=== PATIENT | male | born 1985 | race Two or more races ===

== ENCOUNTER 2024-06-08 23:22 | Emergency (ER) | payer OTHER ==
[~2024-06-08] VITALS: Ht 170.2 cm; Wt 81.8 kg
[2024-06-08 23:32] VITALS: BP 127/91; PULSE 64; RESP 18; TEMP 98.2
[2024-06-09 00:10] LABS: BASOPHILS % (AUTO) 0.8 % (0.0-2.0); EOSINOPHILS % (AUTO) 1.5 % (1.0-6.0); HEMOGLOBIN 15.8 g/dL (13.5-17.5); LYMPHOCYTES # (AUTO) 3.8 K/uL (1.0-4.8); MEAN CORPUSCULAR HEMOGLOBIN 30.1 pg (26.0-34.0); MEAN CORPUSCULAR HGB CONC 33.6 G/dL (31.0-37.0); MEAN CORPUSCULAR VOLUME 89 fL (80-100); MONOCYTES # (AUTO) 0.6 K/uL (0.1-1.0); MONOCYTES % (AUTO) 7.7 % (2.0-9.0); NEUTROPHILS # (AUTO) 3.7 K/uL (1.8-7.7); PLATELET COUNT (AUTO) 254 K/uL (150-450); RED BLOOD CELL COUNT(AUTO) 5.26 MIL/uL (4.50-5.90); RED CELL DISTRIBUTION WIDTH 12.7 % (11.5-14.5); WHITE BLOOD COUNT (AUTO) 8.3 K/uL (4.5-11.0)
[2024-06-09 00:21] LABS: ANION GAP 5 mmol/L (8-16); CARBON DIOXIDE 30 mmol/L (22-29); CHLORIDE 100 mmol/L (98-107); CREATININE 1.08 mg/dL (0.60-1.30); GLOMERULAR FILTR. RATE CALC > 60 mL/min (>60); GLUCOSE,RANDOM 104 mg/dL (70-110); SODIUM SERUM 135 mmol/L (136-145); UREA NITROGEN, BLOOD 16 mg/dL (7-18)
[2024-06-09] MEDS: FAMOTIDINE 20 MG/2 ML VIAL IVP ONE (00:30)
[2024-06-09] MEDS: MAG HYDROX/ALUMINUM HYD/SIMETH 30 ML SUSPENSION UDCUP PO ONE (00:30)
[2024-06-09] MEDS ORDERED: SODIUM CHLORIDE 0.9% 100 ML ONE (00:33)
[2024-06-09] MEDS ORDERED: IOHEXOL 350 MG/ML 100 ML VIAL ONE (00:34)
[2024-06-09 00:39] LABS: ALANINE AMINOTRANSFERASE 36 U/L (12-78); ALKALINE PHOSPHATASE 59 U/L (46-116); ASPARTATE AMINOTRANSFERASE 17 U/L (15-37); BILIRUBIN,TOTAL 0.5 mg/dL (0.1-1.0); LIPASE 60 U/L (16-77); TOTAL PROTEIN, SERUM 7.9 g/dL (6.4-8.2)
[2024-06-09 00:41] LABS: TROPONIN I-HIGH SENSITIVITY 4 ng/L (<76)
[2024-06-09 03:22] LABS: APPEARANCE,URINE CLEAR (CLEAR); BILIRUBIN,URINE NEGATIVE (NEGATIVE); COLOR,URINE LIGHT YELLOW (YELLOW); GLUCOSE, URINE (UA) NEGATIVE (NEGATIVE); KETONES,URINE NEGATIVE (NEGATIVE); LEUKOCYTE ESTERASE ,URINE NEGATIVE (NEGATIVE); NITRATE,URINE NEGATIVE (NEGATIVE); OCCULT BLOOD,URINE NEGATIVE (NEGATIVE); PH,URINE 6.5 (5.0-8.0); PROTEIN,URINE TRACE mg/dL (NEGATIVE); UROBILINOGEN,URINE <=1.0 mg/dL (<=1.0)
== END 2024-06-09 03:28 | disposition home or self-care (01) ==
LOC: EMS 23:25
DX: R07.89 Other chest pain (principal); F41.9 Anxiety disorder, unspecified
CPT/HCPCS: 99285; 80048; 80076; 81003; 83690; 83880; 84484; 85025; 36415; 71275; 96374; 71045; 74175; 93005; Q9967; J3490; J7050

== ENCOUNTER 2025-02-01 19:14 | Emergency (ER) | payer OTHER ==
[~2025-02-01] VITALS: Ht 167.6 cm; Wt 90.9 kg
[2025-02-01 19:22] VITALS: TEMP 98
[2025-02-01 20:16] LABS: BASOPHILS % (AUTO) 0.7 % (0.0-2.0); EOSINOPHILS % (AUTO) 1.5 % (1.0-6.0); HEMATOCRIT 47.6 % (41-53); LYMPHOCYTES # (AUTO) 2.6 K/uL (1.0-4.8); LYMPHOCYTES % (AUTO) 39.8 % (22.0-44.0); MEAN CORPUSCULAR HEMOGLOBIN 29.9 pg (26.0-34.0); MEAN CORPUSCULAR HGB CONC 33.7 G/dL (31.0-37.0); MEAN CORPUSCULAR VOLUME 89 fL (80-100); MONOCYTES # (AUTO) 0.5 K/uL (0.1-1.0); MONOCYTES % (AUTO) 7.4 % (2.0-9.0); NEUTROPHILS # (AUTO) 3.3 K/uL (1.8-7.7); NEUTROPHILS % (AUTO) 50.6 % (40.0-70.0); PLATELET COUNT (AUTO) 201 K/uL (150-450); RED BLOOD CELL COUNT(AUTO) 5.37 MIL/uL (4.50-5.90); RED CELL DISTRIBUTION WIDTH 12.9 % (11.5-14.5); WHITE BLOOD COUNT (AUTO) 6.4 K/uL (4.5-11.0)
[2025-02-01 20:25] LABS: ANION GAP 6 mmol/L (8-16); CARBON DIOXIDE 29 mmol/L (22-29); CHLORIDE 101 mmol/L (98-107); CREATININE 0.95 mg/dL (0.60-1.30); GLOMERULAR FILTR. RATE CALC > 60 mL/min (>60); GLUCOSE,RANDOM 117 mg/dL (70-110); POTASSIUM 3.9 mmol/L (3.5-5.1); SODIUM SERUM 136 mmol/L (136-145); UREA NITROGEN, BLOOD 14 mg/dL (7-18)
[2025-02-01 20:29] LABS: BILIRUBIN,DIRECT 0.1 mg/dL (0.00-0.20); BILIRUBIN,TOTAL 0.5 mg/dL (0.1-1.0); TOTAL PROTEIN, SERUM 7.7 g/dL (6.4-8.2)
[2025-02-01 20:34] LABS: CREATINE KINASE, TOTAL ONLY 147 U/L (39-308); TROPONIN I-HIGH SENSITIVITY 4 ng/L (<76)
[2025-02-01 20:35] LABS: B-TYPE NATRIURETIC PEPTIDE < 5 pg/mL (0-100); LIPASE 76 U/L (16-77)
[2025-02-01] MEDS: ONDANSETRON HCL 4 MG/2 ML VIAL IVP ONE (21:21)
[2025-02-01] MEDS: SODIUM CHLORIDE 0.9% 1,000 ML IV ONE (21:21)
[2025-02-01 21:25] LABS: COVID AG,FIA SOURCE NASAL SWAB
[2025-02-01 21:29] LABS: APPEARANCE,URINE CLEAR (CLEAR); BILIRUBIN,URINE NEGATIVE (NEGATIVE); COLOR,URINE COLORLESS (YELLOW); GLUCOSE, URINE (UA) NEGATIVE (NEGATIVE); KETONES,URINE NEGATIVE (NEGATIVE); LEUKOCYTE ESTERASE ,URINE NEGATIVE (NEGATIVE); NITRATE,URINE NEGATIVE (NEGATIVE); OCCULT BLOOD,URINE NEGATIVE (NEGATIVE); PROTEIN,URINE NEGATIVE (NEGATIVE); SPECIFIC GRAVITIY, URINE 1.005 (1.003-1.030); UROBILINOGEN,URINE <=1.0 mg/dL (<=1.0)
[2025-02-01] MEDS: ACETAMINOPHEN 500 MG TABLET PO ONE (21:38)
[2025-02-01 21:45] LABS: INFLUENZA TYPE A NEGATIVE FOR TYPE A (NEGATIVE); INFLUENZA TYPE B NEGATIVE FOR TYPE B (NEGATIVE); SARS-COV2 (COVID) ANTIGEN,FIA Negative (Negative)
[2025-02-02] VITALS: BP 127/80; PULSE 61; RESP 16; O2SAT 98
== END 2025-02-02 00:05 | disposition home or self-care (01) ==
LOC: EMS 19:14
DX: R42 Dizziness and giddiness (principal); R53.1 Weakness; R06.02 Shortness of breath; R51.9 Headache, unspecified; R11.0 Nausea; Z20.822 Contact with and (suspected) exposure to COVID-19
CPT/HCPCS: 99285; 96374; 70450; 71045; 96361; 87426; 80048; 80076; 81003; 82550; 83690; 83880; 84484; 85025; 87804; 36415; 93005; J2405; J7030